=== PATIENT | male | born 1965 | race Caucasian/White ===

== ENCOUNTER 2024-02-12 15:47 | Emergency (ER) | payer BC, OTHER ==
[2024-02-12] MEDS: Albuterol 0.083% 2.5 MG/3 ML Neb Soln NEB ONE (16:13)
[2024-02-12] MEDS: Bacitracin Oint 28.35 GM Tube TOP ONE (16:14)
[2024-02-12 16:32] VITALS: BP 137/91; PULSE 76
== END 2024-02-12 18:01 | disposition home or self-care (01) ==
LOC: VM.ED 15:47
DX: T20.50XA Corrosion of first degree of head, face, and neck, unspecified site, initial encounter (principal); T31.0 Burns involving less than 10% of body surface
CPT/HCPCS: 94640; 99284; J7613-GY